=== PATIENT | female | born 1985 | race Caucasian/White ===

== ENCOUNTER 2020-07-03 09:20 | Inpatient (IN) | payer MEDICAID ==
[~2020-07-03] VITALS: Ht 167.6 cm; Wt 86.3 kg
[2020-07-03] MEDS ORDERED: ONDANSETRON 2MG/ML, 2ML IVPush ONE (10:00)
[2020-07-03] MEDS ORDERED: SODIUM CHLORIDE 0.9% 1,000ML IVBOLUS ONE ×2 (10:00→11:00)
[2020-07-03] MEDS ORDERED: ACETAMINOPHEN 500 MG TABLET PO ONE (10:00)
[2020-07-03 10:08] LABS: PH, VENOUS 7.155 pH (7.320-7.420)
[2020-07-03 10:10] LABS: MEAN CORPUSCULAR HEMOGLOBIN 28.7 pg (27.0-34.8); MEAN CORPUSCULAR HGB CONC 32.4 g/dL (32.4-35.8); MEAN CORPUSCULAR VOLUME 88.5 fL (80-100); MEAN PLATELET VOLUME 9.7 fL (7.4-10.4); PLATELET COUNT 413 x10^3/uL (130-400); RED BLOOD COUNT 5.87 x10^6/uL (3.82-5.3); RED CELL DISTRIBUTION WIDTH 12.4 % (9.6-15.2)
[2020-07-03] MEDS ORDERED: ACETAMINOPHEN 500 MG TABLET ONE (10:17)
[2020-07-03] MEDS ORDERED: ONDANSETRON 2MG/ML, 2ML ONE (10:17)
[2020-07-03 10:21] LABS: ALANINE AMINOTRANSFERASE 19 U/L (12-78); ALBUMIN 4.2 g/dL (3.4-5.0); ANION GAP 20 mmol/L (5-15); CALCIUM 10.1 mg/dL (8.5-10.1); CHLORIDE 102 mmol/L (98-107); CREATININE 1.31 mg/dL (0.55-1.02)
[2020-07-03 10:23] LABS: ALKALINE PHOSPHATASE 137 U/L (45-117); BILIRUBIN,TOTAL 0.4 mg/dL (0.2-1.0); TOTAL PROTEIN 9.2 g/dL (6.4-8.2)
--- NOTE | 2020-07-03 10:33 | NUR ---
DELAY IN CARE, PIV ACCESS ATTEMPTS X2. UNABLE TO OBTAIN, WILL ATTEMPT US GUIDED
[2020-07-03 10:34] LABS: BASOPHILS # (AUTO) 0.07 x10^3/uL (0-0.1); BASOPHILS % (AUTO) 0 % (0-1); EOSINOPHILS % (AUTO) 0 % (1-7); LYMPHOCYTES # (AUTO) 1.14 x10^3/uL (1-3.4); LYMPHOCYTES % (AUTO) 7 % (22-44); MD SCAN; MONOCYTES # (AUTO) 0.19 x10^3/uL (0.2-0.8); MONOCYTES % (AUTO) 1 % (2-9); NEUTROPHILS # (AUTO) 15.41 x10^3/uL (1.8-6.8); NEUTROPHILS % (AUTO) 92 % (42-75)
[2020-07-03 10:39] LABS: ACETONE, SERUM Large (80mg/dL) (Negative)
[2020-07-03 10:41] LABS: MICROSCOPIC AUTO
--- NOTE | 2020-07-03 10:45 | NUR ---
US IV GUIDED PIV BEGAN, BOLUSES BEGAN. ERMD IN TO UPDATE PT ON POC, PT TO BE ICU ADMIT
[2020-07-03] MEDS: SODIUM CHLORIDE 0.9% 1,000 ML IV SCH ×3 (10:51→20:51)
[2020-07-03] MEDS ORDERED: LABETALOL 5MG/ML, 20ML IVPush PRN (11:00)
[2020-07-03] MEDS ORDERED: POTASSIUM CHLORIDE 40 MEQ in SODIUM CHLORIDE 0.9% 500 ML IV ONE (11:00)
[2020-07-03] MEDS ORDERED: BISACODYL 10 MG SUPP PR PRN (11:00)
[2020-07-03] MEDS ORDERED: DOCUSATE 100 MG CAPSULE PO PRN (11:00)
[2020-07-03] MEDS ORDERED: POLYETHYLENE GLYCOL 17 GM PACKET PO PRN (11:00)
[2020-07-03] MEDS ORDERED: ACETAMINOPHEN 325 MG TABLET PO PRN (11:00)
[2020-07-03] MEDS ORDERED: ONDANSETRON ODT 4 MG PO PRN (11:00)
[2020-07-03] MEDS ORDERED: ENALAPRILAT 1.25 MG/ML, 2ML IVPush PRN (11:00)
--- NOTE | 2020-07-03 11:27 | NUR ---
MULTIPLE ATTEMPTS AT SECOND PIV ACCESS UNSUCCESSFUL, MEDS REQUESTED FROM PHARMACY. VSS AT THIS TIME
[2020-07-03] MEDS: REGULAR INSULIN 100 UNITS in SODIUM CHLORIDE 0.9% 99 ML IV PRN ×4 (11:55→21:18)
--- NOTE | 2020-07-03 11:58 | NUR ---
SECOND PIV ACCESS ACHEIVED, PT MEDICATED PER MAR, VSS
--- NOTE | 2020-07-03 13:03 | NUR ---
REPORT TO ROMAN POND, IVF REQUEST SENT TO PHARM
--- NOTE | 2020-07-03 13:11 | NUR ---
REPORT FROM DAVEY POND. ASSUMED CARE OF PT AT THIS TIME. INSULIN GTT INFUSING @2UNITS/H, BG RECHECK 186, PER INSULIN INFUSION PROTOCOL CONTINUE INFUSION @2 UNITS PER HR FOR BG 101-200. IVF (D5W W/K) ORDERED FROM PHARMACY. PT AWAITING ICU BED AT THIS TIME.
--- NOTE | 2020-07-03 14:30 | NUR ---
REPORT TO SALTY NOEL. PT AWAITING TRANSPORT AT THIS TIME. CALL LIGHT IN REACH.
[2020-07-03] MEDS: D5%-0.45NACL+KCL 20MEQ 1,000 ML IV SCH ×2 (14:34→22:05)
[2020-07-03] MEDS: ENOXAPARIN 40 MG/0.4 ML SQ SCH (15:13)
[2020-07-03 17:23] LABS: ANION GAP 10 mmol/L (5-15); CALCIUM 8.1 mg/dL (8.5-10.1); CHLORIDE 115 mmol/L (98-107); CREATININE 0.86 mg/dL (0.55-1.02)
[2020-07-03 22:01] LABS: ANION GAP 13 mmol/L (5-15); CALCIUM 8.1 mg/dL (8.5-10.1); CHLORIDE 111 mmol/L (98-107)
[2020-07-04 01:19] LABS: ANION GAP 13 mmol/L (5-15); CALCIUM 7.9 mg/dL (8.5-10.1); CHLORIDE 112 mmol/L (98-107); CREATININE 0.65 mg/dL (0.55-1.02)
[2020-07-04] MEDS: SODIUM CHLORIDE 0.9% 1,000 ML IV SCH ×2 (01:51→06:11)
[2020-07-04 04:00] VITALS: BP 89/55
[2020-07-04 04:38] LABS: ANION GAP 8 mmol/L (5-15); CALCIUM 7.8 mg/dL (8.5-10.1); CHLORIDE 114 mmol/L (98-107)
[2020-07-04 04:40] LABS: CREATININE 0.64 mg/dL (0.55-1.02)
[2020-07-04] MEDS: D5%-0.45NACL+KCL 20MEQ 1,000 ML IV SCH (06:11)
[2020-07-04] MEDS ORDERED: POTASSIUM CHLORIDE 20 MEQ TAB.ER.PRT PO ONE (06:30)
[2020-07-04 09:28] LABS: ANION GAP 5 mmol/L (5-15); CALCIUM 8.1 mg/dL (8.5-10.1); CHLORIDE 113 mmol/L (98-107)
[2020-07-04 09:29] LABS: CREATININE 0.65 mg/dL (0.55-1.02)
[2020-07-04 09:30] LABS: BASOPHILS # (AUTO) 0.04 x10^3/uL (0-0.1); BASOPHILS % (AUTO) 1 % (0-1); EOSINOPHILS # (AUTO) 0.08 x10^3/uL (0-0.4); EOSINOPHILS % (AUTO) 1 % (1-7); LYMPHOCYTES # (AUTO) 2.92 x10^3/uL (1-3.4); LYMPHOCYTES % (AUTO) 39 % (22-44); MD NO; MEAN CORPUSCULAR HEMOGLOBIN 28.7 pg (27.0-34.8); MEAN CORPUSCULAR HGB CONC 32.4 g/dL (32.4-35.8); MEAN CORPUSCULAR VOLUME 88.4 fL (80-100); MONOCYTES # (AUTO) 0.46 x10^3/uL (0.2-0.8); MONOCYTES % (AUTO) 6 % (2-9); NEUTROPHILS # (AUTO) 4.01 x10^3/uL (1.8-6.8); NEUTROPHILS % (AUTO) 53 % (42-75); PLATELET COUNT 315 x10^3/uL (130-400); RED BLOOD COUNT 4.49 x10^6/uL (3.82-5.3); RED CELL DISTRIBUTION WIDTH 12.9 % (9.6-15.2)
[2020-07-04] MEDS: ENOXAPARIN 40 MG/0.4 ML SQ SCH (09:45)
[2020-07-04] MEDS ORDERED: INSULIN GLARGINE 100 UNITS/ML, PEN SQ-INSULIN SCH (10:30)
[2020-07-04] MEDS ORDERED: INSULIN LISPRO 100 UNITS/ML, PEN SQ-INSULIN SCH (11:00)
[2020-07-04] MEDS ORDERED: INSU100I13 SQ-INSULIN (13:30)
[2020-07-04] MEDS ORDERED: INSU100I11 SQ-INSULIN (13:30)
[2020-07-04 13:41] LABS: ANION GAP 10 mmol/L (5-15); CALCIUM 8.3 mg/dL (8.5-10.1); CHLORIDE 111 mmol/L (98-107)
== END 2020-07-04 15:50 | disposition home or self-care (01) | DRG 637 ==
LOC: ED 10:55 → EDIP 11:00 → CCU 14:51
PROVIDERS: ADMIT Internal Medicine; ATTEND Internal Medicine
DX: E10.10 Type 1 diabetes mellitus with ketoacidosis without coma (principal); N17.0 Acute kidney failure with tubular necrosis; E87.1 Hypo-osmolality and hyponatremia; E87.6 Hypokalemia; J45.909 Unspecified asthma, uncomplicated; Z82.49 Family history of ischemic heart disease and other diseases of the circulatory system; Z89.412 Acquired absence of left great toe; D72.828 Other elevated white blood cell count; D47.3 Essential (hemorrhagic) thrombocythemia
CPT/HCPCS: 36415; 71045; 80048; 80053; 81001; 82010; 82803; 82962; 83036; 83690; 83735; 84100; 84443; 85025; 87081; 93005; G0378; J1650; J1815; J2405; J3480; J7030; J7040